=== PATIENT | female | born 1990 | race Two or more races ===

== ENCOUNTER 2023-03-11 11:20 | Emergency (ER) | payer MEDICAID, SELFPAY ==
[2023-03-11 11:34] VITALS: BP 114/93; PULSE 76; RESP 16; TEMP 35.8; O2SAT 99; BMI 38.4
--- NOTE | 2023-03-11 11:34 | ED_ITS ---
HPI - General Adult General Chief complaint: Back Pain/Injury Stated complaint: Lower back pain Time Seen by Provider: 03/11/23 11:37 Source: patient Mode of arrival: ambulatory Limitations: no limitations History of Present Illness HPI narrative: Patient is a 32 year old assigned female at with no reported medical history presenting to the emergency department today with low back pain. Patient states that she was washing her daughters hair yesterday, bent over, and felt pain in her low back. Patient denies any dizziness, lightheadedness, abdominal pain, nausea, vomiting, fever, chills, blurry vision, double vision, loss of vision, chest pain, difficulty breathing, shortness of breath, night sweats, pain with urination, increased urinary frequency, increased urinary urgency, blood in her urine or stool, syncope or a near syncopal episode, bowel incontinence, bladder incontinence, bowel retention, bladder retention, or any other complaints at this time. Onset (ago): day(s) (1) Location: back Radiation: non-radiation Severity: mild Severity scale (1-10): 3 Quality: aching and dull Pain Consistency: constant Relieving factors: none Exacerbating factors: none Associated symptoms: denies other symptoms Treatments prior to arrival: none Related Data Previous Rx's Medication Instructions Recorded cyclobenzaprine 5 mg tablet 5 mg PO TID PRN muscle spasm 7 03/11/23 days #21 tabs naproxen 500 mg tablet 500 mg PO BID 7 days #14 tabs 03/11/23 Allergies Allergy/AdvReac Type Severity Reaction Status Date / Time No Known Allergies Allergy Verified 03/11/23 11:36 Review of Systems Constitutional: Constitutional: Reports no additional constitutional complaints, Denies chills, Denies fever(s) and Denies night sweats Eyes: Eyes: Reports no additional eye complaints, Denies blurry vision, Denies change in vision, Denies diplopia, Denies eye discharge, Denies loss of vision a nd Denies eye pain ENT: Denies dizziness Cardiovascular: Cardiovascular: Reports no additional cardiovascular compla ints, Denies chest pain, Denies lightheadedness, Denies Loss of Consciousness and Denies dyspnea Respiratory: Respiratory: Reports no additional respiratory complaints and Denies dyspnea Gastrointestinal: Gastrointestinal: Reports no additional gastrointestinal complaints, Denies abdominal pain, Denies melena, Denies hematochezia, Denies change in bowel habits and Denies change in stool character Genitourinary: Genitourinary: Denies hematuria, Denies urinary frequency, Denies dysuria, Denies urinary incontinence, Denies urinary hesitancy and Denies urinary urgency Musculoskeletal: Musculoskeletal: Reports no additional musculoskeletal complaints, Reports back pain, Denies numbness and Denies tingling Neurologic: Denies dizziness, Denies loss of vision, Denies numbness and Denies tingling Psychiatric: Psychiatric: Reports no additional psychiatric complaints Endocrine: Endocrine: Reports no additional endocrine complaints Hematologic/Lymphatic: Hematologic/Lymphatic: Reports no additional hematologic/lymphatic complaints Allergic/Immunologic: Allergic/Immunologic: Reports no additional allergic/immunologic complaints [facility] Past Medical History Attestation statement: The following information was validated with the patient. Source: old records reviewed and nursing notes reviewed Social History Social History Advance Directives: No Physical Exam ED Vital Signs: Vital Signs - 24 hr 03/11/23 11:34 Temperature 96.5 F L Pulse Rate 76 Respiratory Rate 16 Blood Pressure 114/93 H Pulse Oximetry 99 Oxygen Delivery Method Room Air BMI result Body Mass Index 38.4 Const General: cooperative, no acute distress, alert and awake Nutritional Appearance: well nourished Orientation/consciousness: patient oriented x3 Limitations: no limitations HENMT Head: Yes normal to inspection and Yes atraumatic Ears: hearing grossly normal bilaterally and external ears normal General nose exam: Normal external nose present, no nasal discharge noted and no epistaxis Face and sinus: Yes normal facial exam, No abrasion and No laceration Mouth: Normal oral and palatal mucosa present, no drooling and no muffled voice Eyes General: appearance normal, both eyes and all related structures Periorbital: periorbital findings normal Eyelids: Yes eyelids normal Conjunctivae: conjunctivae normal Pupils: Equal, round and reactive pupils present EOM: EOMs intact bilaterally Neck Neck: Yes normal visual inspection, Yes full ROM and Yes no lymphadenopathy Chest Chest palpation & inspection: normal inspection of the chest Resp Effort & Inspection: normal respiratory effort and able to speak in complete sentences GI Inspection: Yes normal to inspection General: Yes no CVA tenderness Back/Spine/Pelvis Back: no CVA tenderness Cervical Spine: normal cervical lordosis and cervical ROM normal Thoracic/Lumbar Spine: thoracic and lumbar spine normal to inspection and thoraco-lumbar ROM normal Pelvis: no pain with anterior-posterior compression Neuro General: patient oriented x3 and moves all extremities Cranial nerves: Yes Equal, round and reactive pupils present Cognition (Neuro): normal cognition Motor exam (neuro): 5/5 motor strength present throughout Sensory Exam: Normal double simultaneous stimulation for sensation Coordination: [id number] test normal Extrem General: Yes normal to inspection, Yes full ROM and Yes capillary refill normal Psych Appearance: grossly normal Mental Status: mental status grossly normal Affect: normal affect Attitude: cooperative Thought process: Normal thought process present Thought content: Normal thought content present Insight: Good insight present (Psych) Medical Decision Making Medical Decision Making MDM Narrative: Patient is a 32 year old assigned female at with no reported medical history presenting to the emergency department today with low back pain. Patient's physical exam was unremarkable. I explained my physical exam findings to the patient. I answered all questions asked by the patient. I stressed the importance of the patient taking her medication as prescribed. I stressed the importance of the patient following up with her primary care provider. I stressed the importance of the patient returning to the emergency department immediately if her symptoms were to worsen or if she were to develop any dizziness, shortness of breath, difficulty breathing, chest pain, blurry vision, loss of vision, nausea, vomiting, abdominal pain, fever, chills, back pain, or any other complaints. Patient verbalized agreement and understanding with this treatment plan and discharge. Differential Diagnosis Differential Diagnoses: The differential diagnosis associated with the presentation includes Low back pain Back strain Tests considered The following testing was considered but not selected: X-ray of the spine was considered however, the patient's current clinical presentation and mechanism of injury do not warrant imaging at this time. Prescription Management I considered prescription management with: Pain Medication (patient prescribed pain medication.) Discharge Plan Discharge Clinical Impression: Low back pain Patient Disposition: Home, Self-Care Instructions: Acute Low Back Pain (ED) Additional Instructions: Follow up with your primary care provider. If pain persists >2 weeks, follow up with a retail seasonal specialist. Return to the emergency department immediately if your symptoms worsen or if you develop any dizziness, shortness of breath, difficulty breathing, chest pain, blurry vision, loss of vision, nausea, vomiting, abdominal pain, fever, chills, back pain, or any other complaints. Prescriptions: New cyclobenzaprine 5 mg tablet 5 mg PO TID PRN (Reason: muscle spasm) 7 Days Qty: 21 0RF naproxen 500 mg tablet 500 mg PO BID 7 Days Qty: 14 0RF Referrals: [facility] Family Medicine [Provider Group] (Call to establish and follow up with a primary care provider. If you already have a primary care provider, please follow up with them.) [facility] Primary Care, [place] [Provider Group] (Call to establish and follow up with a primary care provider. If you already have a primary care provider, please follow up with them.) [facility] Primary Care,[place] [Provider Group] (Call to establish and follow up with a primary care provider. If you already have a primary care provider, please follow up with them.) [facility] [Provider Group] (Call to establish and follow up with a retail seasonal specialist if the pain persists >2 weeks. ) Stand Alone Forms: Work/School Release Interventions: ED Discharge Assessment Last Done: 03/11/23 11:42 Discharge Date/Time: 03/11/23 11:42 Print Language: Arabic
--- OUTSIDE RECORDS SUMMARY | 2023-03-11 11:42 | XMS_ITS | Continuity of Care Document ---
Author Name Unknown Organization [facility] Demond Drew n's [facility] Address [address], [address] [place] [address]- Care Team Providers Care Optometry Teacher Name Role Phone Jose Martin PAZ, Nadira Smith Primary Care Physician [phone] Encounter [facility] [place] Date(s): 10/16/19 - 11/15/19 [facility] Demond [employer] [facility] [address] [place] [address]- [facility] Attending Physician: Admnivia, Unruly Admitting Physician: Admtr, Unruly Referring Physician: Admtr, Ar8 Allergies, Adverse Reactions, Alerts Substance Reaction Severity Status NKA Active Immunizations Given and Recorded Vaccine Date Status Refusal Reason tetanus/diphtheria/pertussis, acel(Tdap) 1 09/14/11 Given 1Admin Note: VIS 05/22/11 Medications ibuprofen 400 mg oral tablet 1 tablet = 400 mg, By Mouth, Every 4 hours, PRN for pain, # 60 tablet, 0 Refills, Maintenance, 01/25/15 18:59:58, Tablet Start Date: 01/25/15 Status: Ordered
--- OUTSIDE RECORDS SUMMARY | 2023-03-11 11:42 | XMS_ITS | Continuity of Care Document ---
Author Name Unknown Organization [facility] Demond webers [facility] Address [address], [address] [place] [address]- Care Team Providers Care Eligibility Supervisor Name Role Phone Jose Martin PAZ, Nadira Smith Primary Care Physician Encounter [facility] [place] Date(s): 05/21/19 - 05/31/19 [facility] Demond Trents [facility] [address] [place] [address]- Attending Physician: Unruly Mancuso Admitting Physician: Unruly Mancuso Referring Physician: AdmtrUnruly Allergies, Adverse Reactions, Alerts Substance Reaction Severity [...]
--- OUTSIDE RECORDS SUMMARY | 2023-03-11 11:42 | XMS_ITS | Continuity of Care Document ---
Author Name Unknown Organization [facility] Demond [facility] Address [address], [address] [place] [address]- Care Team Providers Care Grain Broker Name Role Phone Jose Martin PAZ, Nadira Smith Primary Care Physician [place] [facility] [place] 12/12/18 - 06/20/19 [facility] [address] [place] [address]- Attending Physician: Abundio PAZ, Alan Mtz Referring Physician: Elizabeth Zamora CNM Allergies, Adverse Reactions, Alerts Substance Reaction Severity [...]
--- OUTSIDE RECORDS SUMMARY | 2023-03-11 11:42 | XMS_ITS | Continuity of Care Document ---
Author Name Unknown Organization [facility] Demond [employer] [facility] Address [address] [place] [address]- Care Team Providers Care Plant And Machinery Valuer Name Role Phone Jose Martin PAZ, Nadira Smith Primary Care Physician [phone] [place] [facility] [place] - 09/24/19 [facility] Demond [employer] [facility] [address] [place] [address]- [facility] Attending Physician: Admnivia, Unruly Admitting Physician: Admtr, [...]
--- OUTSIDE RECORDS SUMMARY | 2023-03-11 11:42 | XMS_ITS | Continuity of Care Document ---
Author Name Unknown Organization [facility] Demond to[facility] Address [address], [address] [place] [address]- Care Team Providers Care Machine Bander And Cellophaner Name Role Phone Jose Martin PAZ, Nadira Smith Primary Care Physician En[place] [facility] [place] Date(s): 08/25/19 - 11/15/19 [facility] Demond [employer] [facility] [address], [address] [place] [address]- [facility] Attending Physician: Kaylyn PAZ, Gillian Miramontes Referring Physician: Not on Staff, Referring MD Allergies, Adverse Reactions, Alerts Substance Reaction Severity [...]
--- OUTSIDE RECORDS SUMMARY | 2023-03-11 11:43 | XMS_ITS | Continuity of Care Document ---
Author Name Unknown Organization [facility] Demond [facility] [employer] Address [address], [address] [place] [address]- Care Team Providers Care Information Security Director Name Role Phone Jose Martin PAZ, Nadira Smith Primary Care Physician [phone] [place] [facility] [place](s): 07/01/19 - 09/24/19 [facility] Moodylily [employer]ig[employer] [facility] [address], [address] [place] [address]- [facility] Attending Physician: Tiffany Medina MD Allergies, Adverse Reactions, Alerts Substance Reaction [...]
== END 2023-03-11 11:42 | disposition home or self-care (01) ==
PROVIDERS: Emergency Provider Emergency Medicine
DX: M54.50 Low back pain, unspecified (principal)
CPT/HCPCS: 99282; 99283